=== PATIENT | male | born 1940 | race Caucasian/White ===

== ENCOUNTER → 2018-05-30 | Day surgery (SDC) | payer MEDICARE, MEDICAID ==
[~2018-05-30] MED LIST: Lactated Ringers 1,000 ML IV SCH; Propofol 200 MG/20 ML SDV IV ONE
[2018-05-30 11:47] VITALS: BP 147/67
--- NOTE | 2018-05-30 14:24 | OR ---
DATE OF OPERATION: 05/30/2018 PREOPERATIVE DIAGNOSIS: HISTORY OF POLYPS. POSTOPERATIVE DIAGNOSIS: HISTORY OF POLYPS. SURGEON: Aaron Orlando MD PROCEDURE: FULL-LENGTH COLONOSCOPY. ANESTHESIA: [employer] DEAN. COMPLICATIONS: None. SPECIMEN: None. FINDINGS: Normal full-length colonoscopy. RECOMMENDATIONS: Followup colonoscopy in 10 years as needed. 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 We elected to proceed with followup in that regard. DESCRIPTION OF PROCEDURE: The patient was prepped and draped, placed in the left lateral decubitus position. A lubricated Olympus colonoscope was inserted and with ease advanced to the cecum. Direct visualization of the ileocecal valve and appendiceal orifice was accomplished. The bowel prep was fine. Upon withdrawal of the scope, throughout the entire length of the colon, I could find no signs of polyps, mass, ulceration, or bleeding sites. No vascular abnormalities or signs of colitis. The rectal vault was benign. Retroflexion of the scope in the rectum showed no perianal lesions. Air was suctioned, scope removed without complication. MARV/JALIL /[id number]
== END ==
LOC: CC.SDS 09:26
PROVIDERS: ATTEND Family Medicine
DX: Z12.11 Encounter for screening for malignant neoplasm of colon (principal); N40.1 Benign prostatic hyperplasia with lower urinary tract symptoms; R35.1 Nocturia; E78.5 Hyperlipidemia, unspecified; I10 Essential (primary) hypertension; E53.8 Deficiency of other specified B group vitamins; Z79.52 Long term (current) use of systemic steroids; Z86.010 Personal history of colon polyps
CPT/HCPCS: J2704; J7120